=== PATIENT | male | born 1955 | race Caucasian/White ===

== ENCOUNTER 2021-02-23 10:58 | Emergency (ER) | payer MEDICARE ==
--- NOTE | 2021-02-23 11:40 | ED Physician Documentation ---
PD HPI HEENT - Stated complaint Stated Complaint: FACE LAC - Chief complaint Chief Complaint: Laceration - History obtained from History obtained from: Patient - History of Present Illness Timing - onset: Today Timing - details: Abrupt onset (tree branch struck him in face as he was walking, with laceration right cheek/lower eyelid. No injury to the eye itself.) Location: Other (right upper cheek) Associated symptoms: No: Fever, Congestion Similar symptoms before: Has not had sx before Review of Systems Constitutional: denies: Fever Eyes: denies: Loss of vision, Decreased vision, Photophobia Nose: denies: Rhinorrhea / runny nose, Congestion Throat: denies: Sore throat Respiratory: denies: Cough PD PAST MEDICAL HISTORY - Past Medical History Cardiovascular: None Respiratory: None - Allergies Allergies/Adverse Reactions: Allergies Allergy/AdvReac Type Severity Reaction Status Date / Time No Known Drug Allergies Allergy Verified 02/23/21 11:31 PD ED PE NORMAL - Vitals Vital signs reviewed: Yes - General General: Alert and oriented X 3, No acute distress, Well developed/nourished - HEENT HEENT: PERRL, EOMI, Other (right upper cheek just to lower part of eyelid with 2 cm laceration to fatty layer, with mild bleeding, no FB noted. Normal sensation to upper lip and teeth. ) - Neck Neck: Supple, no meningeal sign, No adenopathy - Neuro Neuro: No motor deficit, No sensory deficit Results - Vitals Vitals: Vital Signs - 24 hr 02/23/21 02/23/21 11:29 12:56 Temperature 36.2 C L 36.5 C Heart Rate 70 68 Respiratory 16 16 Rate Blood Pressure 162/91 H 150/88 H O2 Saturation 95 96 Oxygen O2 Source Room air Procedures - Laceration (location) right upper cheek Length in cm: 2 Wound type: Linear, Into subcut fat, Clean Neurovascular status: Sensory intact, Motor intact Anesthesia: LET, Lidocaine 1% with epi Wound preparation: Irrigated copiously NS (tap water), Wound explored, To the base. No: FB identified Skin layer closure: Nylon, Running, Size #-0 - enter number (6) Other: Patient tolerated well, No complications, Neurovascular intact, Tetanus booster given PD MEDICAL DECISION MAKING - ED course Complexity details: considered differential, d/w patient Departure - Departure Disposition: 01 Home, Self Care Clinical Impression: Facial laceration Qualifiers: Encounter type: initial encounter Qualified Code(s): S01.81XA - Laceration without foreign body of other part of head, initial encounter Condition: Stable Record reviewed to determine appropriate education?: Yes Instructions: ED Laceration Facial Sutr Tape Comments: It is okay to wash and shower. Clean off the wound twice a day with soap and water, or peroxide and water. Apply some antibiotic ointment to it to keep it moist. Also to watch for signs of infection such as purulence, redness or increasing pain. Return to your primary care or the ER at the specified time for suture removal. Suture removal 7 days. Tylenol or ibuprofen if needed for pains. You did receive a tetanus booster here today Discharge Date/Time: 02/23/21 12:56
[2021-02-23] MEDS ORDERED: LIDOCAINE-EPINEPH-TETRACAINE 3 ML SYRINGE TOP STA (11:54)
[2021-02-23] MEDS ORDERED: ACETAMINOPHEN 325 MG TABLET PO STA (11:54)
[2021-02-23] MEDS ORDERED: TETANUS/DIPHTHERIA/PERTUSSIS 0.5 ML SYRINGE IM ONE (11:55)
[2021-02-23 12:57] VITALS: BP 150/88
== END 2021-02-23 12:56 | disposition home or self-care (01) ==
LOC: ED 10:58
DX: S01.411A Laceration without foreign body of right cheek and temporomandibular area, initial encounter (principal); W22.8XXA Striking against or struck by other objects, initial encounter; Y93.01 Activity, walking, marching and hiking; Z23 Encounter for immunization
CPT/HCPCS: 12011; 90471; 90715; 99282; 99283; A9270